=== PATIENT | male | born 1960 | race Two or more races ===

== ENCOUNTER 2019-07-04 18:58 | Inpatient (IN) | payer MEDICAID ==
[~2019-07-04] VITALS: Ht 162.6 cm; Wt 54.4 kg
[2019-07-04] MEDS ORDERED: SODIUM CHLORIDE 0.9% 1,000 ML IV ONE (21:31)
[2019-07-04 21:43] LABS: BASOPHILS % 0.9 % (0.0-2.0); EOSINOPHILS % 5.6 % (0.0-5.0); HEMATOCRIT. 39.5 % (42.0-52.0); HEMOGLOBIN. 13.1 g/dL (14.0-18.0); LYMPHOCYTES % 20.1 % (20.0-50.0); MEAN CORPUSCULAR HEMOGLOBIN 25.4 pg (28.0-32.0); MEAN CORPUSCULAR VOLUME 76.3 fL (80.0-94.0); MEAN PLATELET VOLUME 7.2 fl (7.4-10.4); MONOCYTES % 7.3 % (2.0-8.0); NEUTROPHILS % 66.1 % (40.0-76.0); PLATELET 371 x1000/uL (130-400); RED BLOOD CELL COUNT 5.17 mill/uL (4.7-6.1); RED CELL DISTRIBUTION WIDTH 17.4 % (11.6-14.6)
[2019-07-04 21:46] LABS: CLARITY URINE CLEAR (CLEAR); COLOR URINE YELLOW (YELLOW); KETONES URINE NEGATIVE (NEGATIVE); LEUKOCYTE ESTERASE URINE NEGATIVE (NEGATIVE); NITRITE URINE NEGATIVE (NEGATIVE); OCCULT BLOOD URINE NEGATIVE (NEGATIVE); PROTEIN URINE NEGATIVE (NEGATIVE); SPECIFIC GRAVITY URINE 1.017 (1.005-1.030); UROBILINOGEN URINE 0.2 E.U./dL (0.2-1.0)
[2019-07-04 21:49] LABS: CHLORIDE 98 mEq/L (98-107)
[2019-07-04 21:54] LABS: ETHANOL BLOOD < 10 mg/dL
[2019-07-04 21:56] LABS: *AMPHETAMINES SCREEN URINE NEGATIVE (NEGATIVE); *BARBITURATES SCREEN URINE NEGATIVE (NEGATIVE); *COCAINE SCREEN URINE NEGATIVE (NEGATIVE)
[2019-07-04 21:57] LABS: *BENZODIAZEPINES SCREEN URINE NEGATIVE (NEGATIVE); CANNABINOID URINE SCREEN NEGATIVE (NEGATIVE); METHADONE URINE SCREEN NEGATIVE (NEGATIVE); OPIATES URINE SCREEN PRESUMTIVE POSITIVE (NEGATIVE); PHENCYCLIDINE URINE SCREEN NEGATIVE (NEGATIVE)
[2019-07-04 21:59] LABS: T4 FREE 1.06 ng/dL (0.76-1.46)
[2019-07-04 22:24] LABS: D-DIMER 0.52 mg/L FEU (<0.50); PROTHROMBIN TIME 10.6 sec (9.6-11.0)
[2019-07-05] MEDS ORDERED: SODIUM CHLORIDE 0.9% 500 ML IV ONE (01:45)
[2019-07-05] MEDS ORDERED: KETOROLAC 15MG/ML VIAL IV ONE (01:45)
[2019-07-05] MEDS ORDERED: MORPHINE SULFATE 2 MG/ML CPJ (NOT FOR IM USE) IV ONE (01:45)
[2019-07-05] MEDS ORDERED: IOHEXOL-350 100 ML BOTTLE ONE (02:08)
[2019-07-05] MEDS ORDERED: IOHEXOL-300 100 ML BOTTLE ONE (07:11)
[2019-07-05 09:00] VITALS: BP 121/74
[2019-07-05] MEDS ORDERED: GABA-531 MT (10:24)
[2019-07-05] MEDS ORDERED: HYDR12.54 MT (10:24)
[2019-07-05] MEDS ORDERED: FLUT15.844 BOTHNSTRLS (10:24)
[2019-07-05] MEDS ORDERED: DIPH50CA4 PO (10:24)
[2019-07-05] MEDS ORDERED: DEXTL MT (10:24)
[2019-07-05] MEDS ORDERED: ACETAMINOPHEN 325MG TABLET PO PRN (12:30)
[2019-07-05] MEDS ORDERED: ONDANSETRON HCL 4MG/2ML INJ IV PRN (12:30)
[2019-07-05] MEDS ORDERED: MECLIZINE 25MG TABLET PO PRN (12:30)
[2019-07-05] MEDS ORDERED: IPRATROPIUM/ALBUTEROL 0.5-3(2.5)MG/3ML NEB NEB PRN (12:30)
[2019-07-05] MEDS: SODIUM CHLORIDE 0.9% 1,000 ML IV SCH ×2 (12:52→20:23)
[2019-07-05] MEDS: ENOXAPARIN 40MG/0.4ML SYR SUBCUT SCH (12:52)
[2019-07-05 15:24] LABS: BASOPHILS % 0.7 % (0.0-2.0); EOSINOPHILS % 7.8 % (0.0-5.0); HEMATOCRIT. 34.5 % (42.0-52.0); HEMOGLOBIN. 11.2 g/dL (14.0-18.0); LYMPHOCYTES % 21.1 % (20.0-50.0); MEAN CORPUSCULAR HEMOGLOBIN 25.3 pg (28.0-32.0); MEAN CORPUSCULAR VOLUME 77.7 fL (80.0-94.0); MEAN PLATELET VOLUME 7.5 fl (7.4-10.4); MONOCYTES % 6.8 % (2.0-8.0); NEUTROPHILS % 63.6 % (40.0-76.0); PLATELET 316 x1000/uL (130-400); RED BLOOD CELL COUNT 4.43 mill/uL (4.7-6.1)
[2019-07-05 15:30] LABS: CHLORIDE 107 mEq/L (98-107)
[2019-07-05 15:38] LABS: HDL CHOLESTEROL 46 mg/dL (40-59); LDL CHOLESTEROL 76 mg/dL (5-100)
[2019-07-05 15:40] LABS: CREATINE KINASE 220 IU/L (39-308)
[2019-07-05 16:31] LABS: T4 FREE 1.16 ng/dL (0.76-1.46)
[2019-07-05 16:46] LABS: FOLIC ACID (FOLATE) SERUM 13.8 ng/mL (>5.38)
[2019-07-05 20:00] VITALS: BP 114/77
[2019-07-06] MEDS: SODIUM CHLORIDE 0.9% 1,000 ML IV SCH ×2 (03:45→12:23)
[2019-07-06 08:00] VITALS: BP 100/56
[2019-07-06] MEDS: ENOXAPARIN 40MG/0.4ML SYR SUBCUT SCH (09:02)
[2019-07-06 12:00] VITALS: BP 114/71
[2019-07-06] MEDS: MECLIZINE 25MG TABLET PO SCH (15:01)
[2019-07-06 20:00] VITALS: BP 127/61
[2019-07-07] VITALS: BP 113/74
[2019-07-07] MEDS: MECLIZINE 25MG TABLET PO SCH ×2 (00:16→12:39)
[2019-07-07] MEDS ORDERED: MECL-159 PO (05:52)
[2019-07-07 14:26] VITALS: BP 103/74
== END 2019-07-07 15:22 | disposition home or self-care (01) | DRG 422 ==
LOC: ER 18:58 → 6EST 07-05 05:40 → EDBEDREQ 07-05 07:25 → ENRESERV 07-05 07:43 → 6EST 07-06 14:45
PROVIDERS: ADMIT Internal Medicine; ATTEND Internal Medicine
DX: E86.0 Dehydration (principal); G90.8 Other disorders of autonomic nervous system; M48.02 Spinal stenosis, cervical region; M48.04 Spinal stenosis, thoracic region; M50.222 Other cervical disc displacement at C5-C6 level; E87.1 Hypo-osmolality and hyponatremia; D64.9 Anemia, unspecified; E78.00 Pure hypercholesterolemia, unspecified; E78.5 Hyperlipidemia, unspecified; K21.9 Gastro-esophageal reflux disease without esophagitis; M48.061 Spinal stenosis, lumbar region without neurogenic claudication; M47.816 Spondylosis without myelopathy or radiculopathy, lumbar region; I10 Essential (primary) hypertension
CPT/HCPCS: 36415; 70551; 71045; 71275; 72141; 72146; 72148; 74177; 80053; 80061; 80305; 80320; 81003; 82550; 82553; 82607; 82746; 83036; 83605; 84145; 84439; 84443; 84481; 84484; 85025; 85379; 93005; 93306; 93880; 93970; 97162; 97166; 99291; J1650; J1885; J2270; J2405; J7030; J7040; J8597; Q9967; G0480

== ENCOUNTER 2019-12-06 21:43 | Emergency (ER) | payer MEDICAID ==
[~2019-12-06] VITALS: Ht 162.6 cm; Wt 59.8 kg
[~2019-12-06 21:43] MED LIST: DEXTL MT; DIPH50CA4 PO; FLUT15.844 BOTHNSTRLS; GABA-531 MT; HYDR12.54 MT; MECL-159 PO
[2019-12-07] MEDS ORDERED: SODIUM CHLORIDE 0.9% 1,000 ML IV ONE (00:30)
[2019-12-07] MEDS ORDERED: ASPIRIN 81MG TABLET PO ONE (00:30)
[2019-12-07 01:12] LABS: CHLORIDE 108 mEq/L (98-107)
[2019-12-07 01:14] LABS: BASOPHILS % 1.7 % (0.0-2.0); EOSINOPHILS % 8.1 % (0.0-5.0); HEMATOCRIT. 30.2 % (42.0-52.0); HEMOGLOBIN. 9.8 g/dL (14.0-18.0); LYMPHOCYTES % 32.1 % (20.0-50.0); MEAN CORPUSCULAR HEMOGLOBIN 22.8 pg (28.0-32.0); MEAN CORPUSCULAR VOLUME 70.2 fL (80.0-94.0); MEAN PLATELET VOLUME 7.1 fl (7.4-10.4); MONOCYTES % 7.7 % (2.0-8.0); NEUTROPHILS % 50.4 % (40.0-76.0); PLATELET 448 x1000/uL (130-400); RED BLOOD CELL COUNT 4.31 mill/uL (4.7-6.1)
[2019-12-07 01:15] LABS: ETHANOL BLOOD < 10 mg/dL
[2019-12-07 01:37] LABS: INR 0.9
[2019-12-07 02:20] LABS: *AMPHETAMINES SCREEN URINE NEGATIVE (NEGATIVE); *BARBITURATES SCREEN URINE NEGATIVE (NEGATIVE); *BENZODIAZEPINES SCREEN URINE NEGATIVE (NEGATIVE); *COCAINE SCREEN URINE NEGATIVE (NEGATIVE)
[2019-12-07 02:21] LABS: CANNABINOID URINE SCREEN NEGATIVE (NEGATIVE); METHADONE URINE SCREEN NEGATIVE (NEGATIVE); OPIATES URINE SCREEN NEGATIVE (NEGATIVE); PHENCYCLIDINE URINE SCREEN NEGATIVE (NEGATIVE)
[2019-12-07 03:02] LABS: CLARITY URINE CLEAR (CLEAR); COLOR URINE YELLOW (YELLOW); KETONES URINE TRACE (NEGATIVE); LEUKOCYTE ESTERASE URINE NEGATIVE (NEGATIVE); NITRITE URINE NEGATIVE (NEGATIVE); OCCULT BLOOD URINE NEGATIVE (NEGATIVE); PROTEIN URINE NEGATIVE (NEGATIVE); SPECIFIC GRAVITY URINE 1.031 (1.005-1.030)
[2019-12-07 05:46] VITALS: BP 119/41
== END 2019-12-07 05:46 | disposition home or self-care (01) ==
LOC: ER 21:43
DX: R53.1 Weakness (principal); R42 Dizziness and giddiness; I10 Essential (primary) hypertension; E78.00 Pure hypercholesterolemia, unspecified; Z98.49 Cataract extraction status, unspecified eye; Z98.890 Other specified postprocedural states; Z88.0 Allergy status to penicillin
CPT/HCPCS: 36415; 71045; 80053; 80305; 80320; 81003; 83690; 83880; 84443; 84484; 85025; 85610; 85730; 93005; 96360; 99285; J7030; Z7610; G0480

== ENCOUNTER 2020-01-01 20:48 | Emergency (ER) | payer MEDICAID ==
[~2020-01-01] VITALS: Ht 162.6 cm; Wt 55.0 kg
[2020-01-01] MEDS ORDERED: SODIUM CHLORIDE 0.9% 1,000 ML IV ONE (23:51)
[2020-01-02] MEDS ORDERED: ONDANSETRON 4MG ODT PO ONE
[2020-01-02] MEDS ORDERED: LORAZEPAM 1MG TABLET PO ONE
[2020-01-02 01:28] LABS: BASOPHILS % 0.4 % (0.0-2.0); EOSINOPHILS % 6.6 % (0.0-5.0); HEMATOCRIT. 29.3 % (42.0-52.0); HEMOGLOBIN. 9.2 g/dL (14.0-18.0); LYMPHOCYTES % 27.7 % (20.0-50.0); MEAN CORPUSCULAR HEMOGLOBIN 21.9 pg (28.0-32.0); MEAN CORPUSCULAR VOLUME 69.3 fL (80.0-94.0); MONOCYTES % 7.9 % (2.0-8.0); NEUTROPHILS % 57.4 % (40.0-76.0); PLATELET 437 x1000/uL (130-400); RED BLOOD CELL COUNT 4.22 mill/uL (4.7-6.1); RED CELL DISTRIBUTION WIDTH 16.8 % (11.6-14.6)
[2020-01-02 01:29] LABS: CHLORIDE 109 mEq/L (98-107)
[2020-01-02 01:44] LABS: PLATELET ESTIMATE NORMAL
[2020-01-02 05:45] VITALS: BP 109/68
== END 2020-01-02 06:00 | disposition home or self-care (01) ==
LOC: ER 20:48
DX: D64.9 Anemia, unspecified (principal); R42 Dizziness and giddiness; F41.9 Anxiety disorder, unspecified; E78.00 Pure hypercholesterolemia, unspecified; I10 Essential (primary) hypertension; Z98.890 Other specified postprocedural states; Z79.899 Other long term (current) drug therapy; Z88.0 Allergy status to penicillin
CPT/HCPCS: 36415; 70450; 71045; 80053; 84484; 85025; 93005; 96360; 99285; J7030; Q0162

== ENCOUNTER 2020-10-22 22:06 | Emergency (ER) | payer MEDICAID, OTHER ==
[~2020-10-22] VITALS: Ht 152.4 cm; Wt 55.0 kg
[~2020-10-22 22:06] MED LIST changes: -GABA-531 MT; +GABA-532 MT; +METO25TA6 MT; +PANT40TA51 PO; +SUCR1TAB30 PO
[2020-10-23 00:27] LABS: CLARITY URINE CLEAR (CLEAR); COLOR URINE YELLOW (YELLOW); KETONES URINE TRACE (NEGATIVE); LEUKOCYTE ESTERASE URINE NEGATIVE (NEGATIVE); NITRITE URINE NEGATIVE (NEGATIVE); OCCULT BLOOD URINE NEGATIVE (NEGATIVE); PH URINE 6.5 (4.5-8.0); PROTEIN URINE NEGATIVE (NEGATIVE); SPECIFIC GRAVITY URINE 1.019 (1.005-1.030); UROBILINOGEN URINE 0.2 E.U./dL (0.2-1.0)
[2020-10-23 00:45] LABS: BASOPHILS % 0.7 % (0.0-2.0); HEMATOCRIT. 33.7 % (42.0-52.0); HEMOGLOBIN. 10.9 g/dL (14.0-18.0); LYMPHOCYTES % 25.7 % (20.0-50.0); MEAN CORPUSCULAR HEMOGLOBIN 23.2 pg (28.0-32.0); MEAN CORPUSCULAR VOLUME 72.1 fL (80.0-94.0); MEAN PLATELET VOLUME 7.2 fl (7.4-10.4); MONOCYTES % 13.3 % (2.0-8.0); NEUTROPHILS % 56.3 % (40.0-76.0); PLATELET 374 x1000/uL (130-400); RED BLOOD CELL COUNT 4.67 mill/uL (4.7-6.1); RED CELL DISTRIBUTION WIDTH 20.1 % (11.6-14.6)
[2020-10-23 00:47] LABS: CHLORIDE 109 mEq/L (98-107)
[2020-10-23] MEDS ORDERED: METR500T MT (03:01)
[2020-10-23] MEDS ORDERED: CIPR-263 MT (03:01)
[2020-10-23] MEDS ORDERED: DOCU-138 MT (03:01)
[2020-10-23 03:07] VITALS: BP 125/88
== END 2020-10-23 03:14 | disposition home or self-care (01) ==
LOC: ER 22:41
DX: K52.9 Noninfective gastroenteritis and colitis, unspecified (principal); I10 Essential (primary) hypertension; E78.00 Pure hypercholesterolemia, unspecified; Z88.0 Allergy status to penicillin
CPT/HCPCS: 36415; 74176; 80053; 81003; 85025; 93005; 99285

== ENCOUNTER 2020-12-11 14:52 | Emergency (ER) | payer OTHER, MEDICAID ==
[~2020-12-11] VITALS: Ht 162.6 cm; Wt 54.0 kg
[~2020-12-11 14:52] MED LIST changes: +ASPI-1497 MT; +DOCU-138 MT; +METO5TAB2 MT; +METR500T MT; +OMEP40CA12 MT; +PRAV40TA58 MT; +SIME125T3 MT
[2020-12-11 20:00] VITALS: BP 122/86
== END 2020-12-11 19:57 | disposition home or self-care (01) ==
LOC: ER 14:52
DX: R05 Cough (principal); I10 Essential (primary) hypertension; Z20.822 Contact with and (suspected) exposure to COVID-19; Z98.890 Other specified postprocedural states; Z88.0 Allergy status to penicillin
CPT/HCPCS: 71045; 99284; C9803; U0003; U0005

== ENCOUNTER 2021-09-06 15:12 | Emergency (ER) | payer MEDICAID, OTHER ==
[~2021-09-06] VITALS: Ht 165.1 cm; Wt 73.0 kg
[~2021-09-06 15:12] MED LIST changes: -OMEP40CA12 MT; +OMEP40CA20 MT
[2021-09-06] MEDS ORDERED: CEFTRIAXONE 1 G PREMIX 50 ML IV ONE (16:30)
[2021-09-06] MEDS ORDERED: SODIUM CHLORIDE 0.9% 1000ML BAG (SEPSIS BOLUS) IV ONE (16:30)
[2021-09-06] MEDS ORDERED: ACETAMINOPHEN 325MG TABLET PO STA (16:30)
[2021-09-06] MEDS ORDERED: ACETAMINOPHEN 325MG TABLET PO NR (16:45)
[2021-09-06 16:46] LABS: BASOPHILS % 0.5 % (0.0-2.0); EOSINOPHILS % 1.9 % (0.0-5.0); HEMOGLOBIN. 8.4 g/dL (14.0-18.0); LYMPHOCYTES % 13.7 % (20.0-50.0); MEAN CORPUSCULAR HEMOGLOBIN 19.6 pg (28.0-32.0); MEAN CORPUSCULAR VOLUME 65.1 fL (80.0-94.0); MEAN PLATELET VOLUME 7.5 fl (7.4-10.4); MONOCYTES % 10.8 % (2.0-8.0); NEUTROPHILS % 73.1 % (40.0-76.0); PLATELET 513 x1000/uL (130-400); RED BLOOD CELL COUNT 4.31 mill/uL (4.7-6.1); RED CELL DISTRIBUTION WIDTH 19.6 % (11.6-14.6)
[2021-09-06 16:54] LABS: CHLORIDE 108 mEq/L (98-107)
[2021-09-06] MEDS: METRONIDAZOLE 500 MG PREMIX 100 ML IV NR ×2 (16:54→17:50)
[2021-09-06 17:54] LABS: PLATELET ESTIMATE INCREAS
[2021-09-06 19:21] LABS: CLARITY URINE CLEAR (CLEAR); COLOR URINE YELLOW (YELLOW); KETONES URINE TRACE (NEGATIVE); LEUKOCYTE ESTERASE URINE NEGATIVE (NEGATIVE); NITRITE URINE NEGATIVE (NEGATIVE); OCCULT BLOOD URINE NEGATIVE (NEGATIVE); PH URINE 6.5 (4.5-8.0); PROTEIN URINE TRACE (NEGATIVE); SPECIFIC GRAVITY URINE 1.022 (1.005-1.030)
[2021-09-06 20:16] VITALS: BP 115/70
== END 2021-09-06 19:30 | disposition short-term general hospital (02) ==
LOC: ER 15:12
DX: A41.9 Sepsis, unspecified organism (principal); K52.9 Noninfective gastroenteritis and colitis, unspecified; D50.9 Iron deficiency anemia, unspecified; I10 Essential (primary) hypertension; E78.00 Pure hypercholesterolemia, unspecified; Z20.822 Contact with and (suspected) exposure to COVID-19; Z88.0 Allergy status to penicillin
CPT/HCPCS: 36415; 71045; 74176; 80048; 80076; 81003; 83605; 84145; 85025; 87086; 87426; 93005; 96365; 96368; 99291; C9803; J0696; J3490; J7030

== ENCOUNTER 2021-10-16 10:57 | Emergency (ER) | payer OTHER ==
[~2021-10-16] VITALS: Ht 167.6 cm; Wt 56.0 kg
[~2021-10-16 10:57] MED LIST changes: -DIPH50CA4 PO; +DIPH50CA41 PO
[2021-10-16] MEDS ORDERED: MORPHINE SULFATE 4 MG/ML CPJ (NOT FOR IM USE) IV STA (11:38)
[2021-10-16] MEDS ORDERED: ONDANSETRON HCL 4MG/2ML INJ IV STA (11:38)
[2021-10-16] MEDS ORDERED: SODIUM CHLORIDE 0.9% 1,000 ML IV ONE (11:45)
[2021-10-16 13:40] LABS: HEMATOCRIT. 25.7 % (42.0-52.0); HEMOGLOBIN. 7.9 g/dL (14.0-18.0); MEAN CORPUSCULAR HEMOGLOBIN 18.5 pg (28.0-32.0); MEAN CORPUSCULAR VOLUME 59.9 fL (80.0-94.0); MEAN PLATELET VOLUME 6.8 fl (7.4-10.4); PLATELET 923 x1000/uL (130-400); RED BLOOD CELL COUNT 4.29 mill/uL (4.7-6.1); RED CELL DISTRIBUTION WIDTH 19.9 % (11.6-14.6)
[2021-10-16] MEDS ORDERED: LEVOFLOXACIN 750MG PREMIX 150 ML IV ONE (13:45)
[2021-10-16] MEDS ORDERED: METRONIDAZOLE 500 MG PREMIX 100 ML IV ONE (13:45)
[2021-10-16 14:41] LABS: PLATELET ESTIMATE MARKEDLY INCREASED
[2021-10-16] MEDS ORDERED: MORPHINE SULFATE 4 MG/ML CPJ (NOT FOR IM USE) IV ONE (14:45)
[2021-10-16 15:06] LABS: CHLORIDE 106 mEq/L (98-107)
[2021-10-16] MEDS ORDERED: KCL 10MEQ/50ML PREMIX 50 ML IV ONE (15:15)
[2021-10-16 17:20] LABS: CLARITY URINE CLEAR (CLEAR); COLOR URINE YELLOW (YELLOW); KETONES URINE NEGATIVE (NEGATIVE); LEUKOCYTE ESTERASE URINE NEGATIVE (NEGATIVE); NITRITE URINE NEGATIVE (NEGATIVE); OCCULT BLOOD URINE NEGATIVE (NEGATIVE); PH URINE 6.5 (4.5-8.0); PROTEIN URINE 1+ (NEGATIVE); SPECIFIC GRAVITY URINE 1.016 (1.005-1.030); UROBILINOGEN URINE 0.2 E.U./dL (0.2-1.0)
[2021-10-16] MEDS ORDERED: POTASSIUM CHLORIDE 20MEQ TABLET SR PO ONE (18:15)
[2021-10-16 18:22] VITALS: BP 147/78
== END 2021-10-16 18:50 | disposition short-term general hospital (02) ==
LOC: ER 10:57
DX: K52.9 Noninfective gastroenteritis and colitis, unspecified (principal); E87.6 Hypokalemia; R00.0 Tachycardia, unspecified; R10.33 Periumbilical pain; I10 Essential (primary) hypertension; E78.00 Pure hypercholesterolemia, unspecified; Z20.822 Contact with and (suspected) exposure to COVID-19; Z88.0 Allergy status to penicillin
CPT/HCPCS: 36415; 71045; 74176; 80053; 81003; 83690; 85025; 87086; 87426; 93005; 96361; 96365; 96366; 96367; 96375; 96376; 99285; C9803; J1956; J2270; J2405; J3490; J7030; J3480

== ENCOUNTER 2021-11-10 07:13 | Emergency (ER) | payer OTHER ==
[~2021-11-10] VITALS: Ht 162.6 cm; Wt 59.0 kg
[2021-11-10 08:22] LABS: BASOPHILS % 0.4 % (0.0-2.0); EOSINOPHILS % 4.9 % (0.0-5.0); HEMATOCRIT. 24.6 % (42.0-52.0); HEMOGLOBIN. 7.3 g/dL (14.0-18.0); LYMPHOCYTES % 24.1 % (20.0-50.0); MEAN CORPUSCULAR VOLUME 64.1 fL (80.0-94.0); MEAN PLATELET VOLUME 6.1 fl (7.4-10.4); MONOCYTES % 8.8 % (2.0-8.0); NEUTROPHILS % 61.8 % (40.0-76.0); PLATELET 699 x1000/uL (130-400); RED BLOOD CELL COUNT 3.83 mill/uL (4.7-6.1); RED CELL DISTRIBUTION WIDTH 24.2 % (11.6-14.6)
[2021-11-10 08:28] LABS: CHLORIDE 104 mEq/L (98-107)
[2021-11-10 08:30] VITALS: BP 122/74
[2021-11-10] MEDS ORDERED: KETOROLAC 60MG/2ML VIAL IM ONE (08:30)
[2021-11-10 09:21] LABS: PLATELET ESTIMATE INCREASED
[2021-11-10] MEDS ORDERED: ONDANSETRON HCL 4MG/2ML INJ IV STA (09:29)
[2021-11-10] MEDS ORDERED: MORPHINE SULFATE 4 MG/ML CPJ (NOT FOR IM USE) IV STA (09:29)
[2021-11-10] MEDS ORDERED: LEVOFLOXACIN 750MG PREMIX 150 ML IV ONE (09:30)
[2021-11-10] MEDS ORDERED: SODIUM CHLORIDE 0.9% 1,000 ML IV ONE (09:30)
[2021-11-10] MEDS ORDERED: METRONIDAZOLE 500 MG PREMIX 100 ML IV ONE (09:30)
[2021-11-10 09:31] LABS: CLARITY URINE CLEAR (CLEAR); COLOR URINE YELLOW (YELLOW); KETONES URINE NEGATIVE (NEGATIVE); LEUKOCYTE ESTERASE URINE NEGATIVE (NEGATIVE); NITRITE URINE NEGATIVE (NEGATIVE); OCCULT BLOOD URINE NEGATIVE (NEGATIVE); PH URINE 6.5 (4.5-8.0); PROTEIN URINE NEGATIVE (NEGATIVE); SPECIFIC GRAVITY URINE 1.015 (1.005-1.030); UROBILINOGEN URINE 0.2 E.U./dL (0.2-1.0)
[2021-11-12 06:08] LABS: NEISSERIA GONORRHOEAE NAA Negative (Negative)
== END 2021-11-10 12:52 | disposition left against medical advice (07) ==
LOC: ER 07:31
DX: N50.812 Left testicular pain (principal); K52.9 Noninfective gastroenteritis and colitis, unspecified; N43.3 Hydrocele, unspecified; R93.5 Abnormal findings on diagnostic imaging of other abdominal regions, including retroperitoneum; I49.3 Ventricular premature depolarization; I10 Essential (primary) hypertension; E11.9 Type 2 diabetes mellitus without complications; E78.00 Pure hypercholesterolemia, unspecified; Z88.0 Allergy status to penicillin
CPT/HCPCS: 36415; 71045; 74176; 76870; 80053; 81003; 83690; 85025; 87491; 87591; 93005; 93976; 96372; 99285; J1885; J7030

== ENCOUNTER 2022-10-29 06:45 | Emergency (ER) | payer OTHER ==
[~2022-10-29] VITALS: Ht 160 cm; Wt 62.0 kg
[2022-10-29 06:48] VITALS: O2SAT 98
[2022-10-29] MEDS ORDERED: FAMOTIDINE 20MG/2ML VIAL IV STA (07:38)
[2022-10-29] MEDS ORDERED: ONDANSETRON HCL 4MG/2ML INJ IV STA (07:38)
[2022-10-29] MEDS ORDERED: MORPHINE SULFATE 4 MG/ML CPJ (NOT FOR IM USE) IV ONE (07:45)
[2022-10-29 07:47] LABS: BASOPHILS % 0.6 % (0.0-2.0); EOSINOPHILS % 5.5 % (0.0-5.0); HEMATOCRIT. 28.4 % (42.0-52.0); HEMOGLOBIN. 8.5 g/dL (14.0-18.0); LYMPHOCYTES % 17.3 % (20.0-50.0); MEAN CORPUSCULAR VOLUME 66.9 fL (80.0-94.0); MEAN PLATELET VOLUME 8.5 fl (7.4-10.4); MONOCYTES % 9.6 % (2.0-8.0); PLATELET 304 x1000/uL (130-400); RED BLOOD CELL COUNT 4.25 mill/uL (4.7-6.1); RED CELL DISTRIBUTION WIDTH 30.8 % (11.6-14.6)
[2022-10-29 07:56] LABS: CHLORIDE 109 mEq/L (98-107)
[2022-10-29 08:16] LABS: PLATELET ESTIMATE NORMAL
[2022-10-29 13:00] VITALS: BP 119/62; PULSE 98; RESP 18; TEMP 98.5
== END 2022-10-29 15:34 | disposition left against medical advice (07) ==
LOC: ER 06:55
DX: R07.89 Other chest pain (principal); E11.9 Type 2 diabetes mellitus without complications; E78.00 Pure hypercholesterolemia, unspecified; I10 Essential (primary) hypertension
CPT/HCPCS: 80053; 83880; 85025; 84484; 36415; 71045; 93005; 96374; 96375; 99285; J3490; J2405; J2270; Z7610 ×2

== ENCOUNTER 2023-11-03 10:48 | Emergency (ER) | payer OTHER ==
[~2023-11-03] VITALS: Ht 152.4 cm; Wt 55.0 kg
[~2023-11-03 10:48] MED LIST changes: -MECL-159 PO; +MECL-299 PO
[2023-11-03 10:55] VITALS: O2SAT 97
[2023-11-03 15:11] LABS: BASOPHILS % 1.2 % (0.0-2.0); EOSINOPHILS % 9.5 % (0.0-5.0); HEMATOCRIT. 41.9 % (42.0-52.0); HEMOGLOBIN. 13.7 g/dL (14.0-18.0); LYMPHOCYTES % 9.4 % (20.0-50.0); MEAN CORPUSCULAR HEMOGLOBIN 28.2 pg (28.0-32.0); MEAN CORPUSCULAR HGB CONC 32.8 g/dL (31.0-37.0); MEAN CORPUSCULAR VOLUME 85.9 fL (80.0-94.0); MEAN PLATELET VOLUME 8.2 fl (7.4-10.4); NEUTROPHILS % 70.9 % (40.0-76.0); PLATELET 267 x1000/uL (130-400); RED BLOOD CELL COUNT 4.88 mill/uL (4.7-6.1); RED CELL DISTRIBUTION WIDTH 15.1 % (11.6-14.6); WHITE BLOOD COUNT 7.7 x1000/uL (4.5-11.0)
[2023-11-03] MEDS: SODIUM CHLORIDE 0.9% 1,000 ML IV ONE (15:14)
[2023-11-03] MEDS: IBUPROFEN 600MG TABLET PO ONE (15:15)
[2023-11-03 15:19] LABS: CHLORIDE 105 mEq/L (98-107); POTASSIUM 3.7 mEq/L (3.5-5.1); SODIUM 137 mEq/L (136-145)
[2023-11-03 15:20] LABS: CALCIUM 8.9 mg/dL (8.7-10.4); CARBON DIOXIDE 26 mEq/L (21-32)
[2023-11-03 15:20] LABS: CLARITY URINE CLEAR (CLEAR); COLOR URINE YELLOW (YELLOW); GLUCOSE URINE TRACE (NEGATIVE); KETONES URINE TRACE (NEGATIVE); LEUKOCYTE ESTERASE URINE NEGATIVE (NEGATIVE); NITRITE URINE NEGATIVE (NEGATIVE); OCCULT BLOOD URINE NEGATIVE (NEGATIVE); PH URINE 5.5 (4.5-8.0); PROTEIN URINE NEGATIVE (NEGATIVE); SPECIFIC GRAVITY URINE 1.028 (1.005-1.030)
[2023-11-03 15:25] LABS: GLUCOSE 169 mg/dL (70-105); UREA NITROGEN BLOOD 18 mg/dL (9-23)
[2023-11-03 15:27] LABS: INR 0.9; PROTHROMBIN TIME 10.5 sec (9.6-11.0)
[2023-11-03 15:51] LABS: BACTERIA URINE TRACE; RBC URINE NONE SEEN /hpf (0-2); SQUAMOUS EPITHELIAL CELL URINE FEW /lpf (RARE/1+); WBC URINE 0-2 /hpf (0-2)
[2023-11-03] MEDS ORDERED: NIRM1TAB8 PO (18:10)
[2023-11-03 18:20] VITALS: BP 112/61; PULSE 94; RESP 18; TEMP 98.4
== END 2023-11-03 18:35 | disposition home or self-care (01) ==
LOC: ER 10:48
DX: U07.1 COVID-19 (principal); E78.00 Pure hypercholesterolemia, unspecified; E11.9 Type 2 diabetes mellitus without complications; I10 Essential (primary) hypertension; Z88.0 Allergy status to penicillin; Z79.899 Other long term (current) drug therapy
CPT/HCPCS: 80048; 81003; 83605; 85025; 85610; 87804 ×2; 36415; 71045; 93005; 96360; 96361; 99285; 87426; J7030; Z7610 ×2